=== PATIENT | male | born 1980 | race African-American/Black ===

== ENCOUNTER 2020-08-25 09:47 | Emergency (ER) | payer SELFPAY ==
[~2020-08-25] VITALS: Ht 167.6 cm; Wt 71.2 kg
[2020-08-25] MEDS ORDERED: TDAP DIPH,PERTUSS,TET VAC/PF 0.5 ML DISP.SYRIN IM ONE ×2 (10:15→10:24)
[2020-08-25] MEDS ORDERED: LIDOCAINE 2%-EPI 1:100,000 20 ML VIAL TP ONE (10:15)
[2020-08-25] MEDS ORDERED: SULFAMETH/TRIMETH 800/160 MG TABLET PO ONE (10:15)
[2020-08-25] MEDS ORDERED: CEphaleXIN 500 MG CAPSULE PO ONE (10:15)
[2020-08-25] MEDS ORDERED: LIDOCAINE 2%-EPI 1:100,000 20 ML VIAL ONE (10:17)
[2020-08-25] MEDS ORDERED: CEphaleXIN 500 MG CAPSULE ONE (10:22)
[2020-08-25] MEDS ORDERED: SULFAMETH/TRIMETH 800/160 MG TABLET ONE (10:23)
== END 2020-08-25 11:46 | disposition home or self-care (01) ==
LOC: ER 09:49
DX: L02.11 Cutaneous abscess of neck (principal); L03.221 Cellulitis of neck; Z72.0 Tobacco use; Z59.0 Homelessness
CPT/HCPCS: 90715; A4663